=== PATIENT | male | born 1950 | race Caucasian/White ===

== ENCOUNTER 2017-03-31 20:20 | Emergency (ER) | payer MEDICARE, OTHER ==
[~2017-03-31] VITALS: Ht 185.4 cm; Wt 108.8 kg
[~2017-03-31 20:20] MED LIST: ANDR1GEL TD; CALC500T21 PO; LORTA5 PO; NAPR220T95 PO; OMEP20CA5 PO; SIMV20 PO
[2017-03-31 20:39] VITALS: BP 188/93; PULSE 94; RESP 18; TEMP 98.4; O2SAT 98
[2017-03-31 21:17] VITALS: BP 188/93; PULSE 99; RESP 18; TEMP 98.4; O2SAT 98
[2017-03-31] MEDS ORDERED: SIMV20TA PO (21:26)
--- NOTE | 2017-03-31 21:28 | PD ---
HPI Chief Complaint: Foreign Body Time Seen by Provider: 21:26 Travel History International Travel<30 days: No Contact w/Intl Traveler<30days: No Traveled to known affect area: No History of Present Illness HPI patient is a 67-year-old male presents emergency department for evaluation of retained rectal foreign body. Patient states he bought a new sex toy for he and his noticed first and was ever done this he tried a prior to getting home. He describes using an anal plug. Patient states he went outside. States she's having some discomfort but no obvious pain he tried to get it out at home unsuccessfully. States symptoms started just prior to arrival, pain is mild, context as above, no associated nausea vomiting diarrhea constipation. He has had some mild rectal bleeding. PFSH Past Medical History Cancer: No Cardiovascular Problems: Yes (irregular heart beat) High Cholesterol: Yes Diabetes: No Diverticulitis: Yes Endocrine: No Gastrointestinal Disorders: Yes (reflux) GERD: Yes Genitourinary: No Hepatitis: No Hiatal Hernia: No Immune Disorder: No Musculoskeletal: Yes (arthritis neck and back problems crushed disc l5) Neurologic: No Psychiatric: No Reproductive: No Respiratory: Yes (sleep apnea) Thyroid Disease: No Past Surgical History Abdominal Surgery: Yes (appendectomy) AICD: No Appendectomy: Yes Body Medical Devices: NONE Cardiac Surgery: No Ear Surgery: No Endocrine Surgery: No Eye Surgery: No Genitourinary Surgery: No Joint Replacement: No Oral Surgery: Yes (TONSILLECTOMY) Pacemaker: No Thoracic Surgery: No Tonsillectomy: Yes Other Surgery: Yes Social History Alcohol Use: Yes (2-3 DRINKS/WEEK) Tobacco Use: No Substance Use: No Allergies-Medications (Allergen,Severity, Reaction): Coded Allergies: No Known Allergies (Verified , 03/31/17) Reported Meds & Prescriptions Reported Meds & Active Scripts Active Reported Simvastatin 20 Mg Tab 20 Mg PO DAILY Review of Systems Except as stated in HPI: all other systems reviewed are Neg Physical Exam Narrative GENERAL: Well-developed well-nourished no obvious distress. SKIN: Focused skin assessment warm/dry. HEAD: Atraumatic. Normocephalic. EYES: Pupils equal and round. No scleral icterus. No injection or drainage. ENT: No nasal bleeding or discharge. Mucous membranes pink and moist. NECK: Trachea midline. No JVD. CARDIOVASCULAR: Regular rate and rhythm. No murmur appreciated. RESPIRATORY: No accessory muscle use. Clear to auscultation. Breath sounds equal bilaterally. GASTROINTESTINAL: Abdomen soft, non-tender, nondistended. Hepatic and splenic margins not palpable. RECTAL: Scant blood mixed with mucous at the anal orifice, digital exam does reveal palpable foreign body. MUSCULOSKELETAL: No obvious deformities. No clubbing. No cyanosis. No edema. NEUROLOGICAL: Awake and alert. No obvious cranial nerve deficits. Motor grossly within normal limits. Normal speech. PSYCHIATRIC: Appropriate mood and affect; insight and judgment normal. Data Data Last Documented VS Vital Signs Date Time Temp Pulse Resp B/P (MAP) Pulse Ox O2 Delivery O2 Flow Rate FiO2 03/31/17 21:39 96 18 174/93 (120) 97 03/31/17 21:17 98.4 Orders Orders Lidocaine 2% Jelly (Xylocaine 2% Jelly) (03/31/17 21:30) Ed Discharge Order (03/31/17 21:34) [facility] Medical Decision Making Medical Screen Exam Complete: Yes Emergency Medical Condition: Yes Differential Diagnosis retained rectal foreign body, rectal bleeding, rectal perforation highly unlikely. Narrative Course Patient roomed in emergency department, with some effort the rectal foreign body was retrieved, the patient was offered to take at home and he stated he did not want it anymore, it was disposed of in the trash. He did have some minimal bleeding after the procedure. Discuss with him that he should expect some bleeding for the next week for his lungs is not passing clots and it is lessening that he is well. He is stable for discharge at this time. Recommended following up with a prop attendant for routine colonoscopy screening. Procedures Procedure Narrative Foreign body removal: Attempts were made to retrieve the foreign body with Pierre catheter inserted distally with gentle traction and patient bearing down. This was unsuccessful. The patient then attempted to have a ringed forcep inserted around the foreign body however I could not guarantee that rectal tissue was not between the clamp and therefore the clamp was not applied and so this technique was abandoned. Finally using digital technique and 2 fingers was able to grasp the foreign body manually and with some discomfort to the patient the object was able to be retrieved. There was minimal amount of blood mixed with mucus which seemed to be lessening. He was given some lidocaine jelly. After procedure and is feeling better. Diagnosis Primary Impression: Foreign body anus/rectum Qualified Codes: T18.5XXA - Foreign body in anus and rectum, initial encounter Referrals: Davide Strong MD Additional Instructions: Follow-up with Dr. Strong or your regular GI doctor for routine colonoscopy. Expect to see some blood in your stool for the next week. If the bleeding increases return to the emergency department. Disposition: 01 DISCHARGE HOME Condition: Stable Kane Philip MD Mar 31, 2017 21:28
[2017-03-31] MEDS ORDERED: LIDOCAINE 2% JELLY 30 ML TUBE TOPICAL ONE (21:30)
[2017-03-31 21:39] VITALS: BP 174/93
== END 2017-03-31 21:53 | disposition home or self-care (01) ==
LOC: PHED 20:20
DX: T18.5XXA Foreign body in anus and rectum, initial encounter (principal)
CPT/HCPCS: 99284